=== PATIENT | male | born 1990 | race Two or more races ===

== ENCOUNTER 2017-02-13 15:18 | Emergency (ER) | payer OTHER | END 2017-02-13 17:18 | disposition left against medical advice (07) | LOC: EME 15:18 | DX: Z53.21 Procedure and treatment not carried out due to patient leaving prior to being seen by health care provider (principal) ==

== ENCOUNTER 2017-03-03 12:46 | Emergency (ER) | payer OTHER ==
[~2017-03-03] VITALS: Ht 175.3 cm; Wt 67.6 kg
[2017-03-03 13:32] LABS: HEMATOCRIT 43.2 % (38.0-50.0); MCH 33.9 PG (29.0-34.0); MCHC 34.3 G/DL (30.0-36.0); MCV 98.9 FL (86-99); MEAN PLAT.VOLUME 8.9 uM^3 (9.0-12.4); PLATELET COUNT 166 K/uL (156-360); RBC DIS.WIDTH-CV 12.3 % (11.8-14.6); RED BLOOD COUNT 4.37 M/uL (4.00-5.50); WHITE BLOOD COUNT 4.5 K/uL (4.1-10.2)
[2017-03-03 13:40] LABS: ADD MIUA? NO; BILIRUBIN NEGATIVE; BLOOD NEGATIVE; COLOR YELLOW ((YELLOW)); GLUCOSE (STRIP) NEGATIVE; KETONES NEGATIVE; LEUKOCYTES NEGATIVE; NITRITE NEGATIVE; PROTEIN (STRIP) NEGATIVE; UCUL ADDED? NO; UROBILINOGEN 0.2 MG/DL (0.2-1.0)
[2017-03-03 13:45] LABS: CHLORIDE 106 mEq/L (99-109); POTASSIUM 3.9 mEq/L (3.7-5.4); SODIUM 140 mEq/L (136-147)
[2017-03-03 13:47] LABS: GLUCOSE 89 mg/dL (70-99)
[2017-03-03 13:48] LABS: ANION GAP 11 MEQ/L (2-14)
[2017-03-03 13:50] LABS: SERUM ETHYL ALCOHOL 156 mg/dL
[2017-03-03 13:51] LABS: GFR ESTIMATE (CALCULATED) > 59 mL/min/
[2017-03-03 13:53] LABS: UREA NITROGEN (BUN) 12 mg/dL (9-23)
[2017-03-03 13:54] LABS: SALICYLATE < 5.0 MG/DL (15-30)
[2017-03-03 14:08] LABS: AMPHETAMINE NEGATIVE (500 ng/mL); BARBITURATES NEGATIVE (200 ng/mL); BENZODIAZEPINES NEGATIVE (150 ng/mL); COCAINE NEGATIVE (150 ng/mL); INTERNAL CONTROLS VALID? YES; METHADONE NEGATIVE (200 ng/mL); METHAMPHETAMINE NEGATIVE (500 ng/mL); OPIATES (MORPHINE) NEGATIVE (100 ng/mL); OXYCODONE NEGATIVE (100 ng/mL); PHENCYCLIDINE NEGATIVE (25 ng/mL); PROPOXYPHENE NEGATIVE (300 ng/mL); THC CANNABINOIDS NEGATIVE (50 ng/mL); TRICYCLIC ANTIDEPRESSANTS NEGATIVE (300 ng/mL)
[2017-03-03 16:00] VITALS: BP 117/78
== END 2017-03-03 16:01 | disposition home or self-care (01) ==
LOC: EME 12:46
DX: F10.229 Alcohol dependence with intoxication, unspecified (principal); Y90.6 Blood alcohol level of 120-199 mg/100 ml; F17.200 Nicotine dependence, unspecified, uncomplicated
CPT/HCPCS: 80048; 81003; 85027; 90839; 99281; 99284; G0480

== ENCOUNTER 2017-06-14 16:50 | Emergency (ER) | payer OTHER ==
[~2017-06-14] VITALS: Ht 175.3 cm; Wt 68.0 kg
[2017-06-14] MEDS ORDERED: KLONOPIN0.5 M1 PO (18:17)
[2017-06-14 18:30] VITALS: BP 124/66
== END 2017-06-14 18:52 | disposition home or self-care (01) ==
LOC: EME 16:50
DX: F41.0 Panic disorder [episodic paroxysmal anxiety] (principal); F17.200 Nicotine dependence, unspecified, uncomplicated
CPT/HCPCS: 99281; 99284

== ENCOUNTER 2017-11-23 09:35 | Emergency (ER) | payer OTHER ==
[~2017-11-23] VITALS: Ht 175.3 cm; Wt 65.9 kg
[~2017-11-23 09:35] MED LIST: KLONOPIN0.5 M1 PO
[2017-11-23] MEDS ORDERED: FLEXERIL10 MG PO (12:18)
[2017-11-23] MEDS ORDERED: MOTRIN600 MG PO (12:18)
[2017-11-23] MEDS ORDERED: PERCOCET 5/31 TABLET PO (12:18)
[2017-11-23 12:42] VITALS: BP 113/67
== END 2017-11-23 12:42 | disposition home or self-care (01) ==
LOC: EME 09:35
DX: S33.5XXA Sprain of ligaments of lumbar spine, initial encounter (principal); M54.40 Lumbago with sciatica, unspecified side; X50.9XXA Other and unspecified overexertion or strenuous movements or postures, initial encounter; Y93.89 Activity, other specified; F41.9 Anxiety disorder, unspecified; F17.200 Nicotine dependence, unspecified, uncomplicated
CPT/HCPCS: 72100; 99281; 99284; J1885; J2060; J3010; J8540